=== PATIENT | female | born 1935 | race African-American/Black ===

== ENCOUNTER 2020-03-20 11:53 | Inpatient (IN) | payer MEDICARE, BC, MEDICAID ==
[~2020-03-20] VITALS: Ht 160 cm; Wt 62.8 kg
[2020-03-20] MEDS ORDERED: AZITHROMYCIN IV 500 MG in IV DEXTROSE 5% 250 ML IV ONE (13:30)
[2020-03-20] MEDS ORDERED: CEFEPIME HCL 2 G in IV DEXTROSE 5% 100 ML IV ONE (13:30)
[2020-03-20] MEDS ORDERED: CEFEPIME HCL 1 G VIAL ONE (13:57)
[2020-03-20] MEDS ORDERED: AZITHROMYCIN 500MG/ D5W 250ML IVPB **ER PYXIS ONLY IV ONE (13:57)
--- NOTE | 2020-03-20 14:10 | NUR ---
I and another RN attempted to place a HL, but unable to DR Delgado made aware. Midline ordered by .
[2020-03-20 14:21] LABS: BASOPHILS % (AUTO) 0.2 % (0.0-2.0); HEMATOCRIT 35.1 % (31.2-41.9); HEMOGLOBIN 11.4 g/dL (10.9-14.3); LYMPHOCYTES # (AUTO) 0.9 K/uL (20.0-40.0); LYMPHOCYTES % (AUTO) 26.6 % (20.5-51.5); MEAN CORPUSCULAR HEMOGLOBIN 30.1 uug (24.7-32.8); MEAN CORPUSCULAR HGB CONC 33 g/dL (32.3-35.6); MEAN CORPUSCULAR VOLUME 92.6 fL (75.5-95.3); MONOCYTES # (AUTO) 0.5 K/uL (2.0-10.0); MONOCYTES % (AUTO) 13.1 % (0.0-11.0); NEUTROPHILS # (AUTO) 2.1 K/uL (1.8-8.9); NEUTROPHILS % (AUTO) 60.1 % (38.5-71.5); PLATELET COUNT (AUTO) 322 K/uL (179-408); RED BLOOD CELL COUNT(AUTO) 3.79 MIL/uL (3.63-4.92); WHITE BLOOD COUNT (AUTO) 3.5 K/uL (3.8-11.8)
--- NOTE | 2020-03-20 14:30 | NUR ---
Midline Rn at the bedside for [place] placement.
[2020-03-20 14:33] LABS: ETHANOL < 3 MG/DL (0-0)
[2020-03-20 14:46] LABS: CARBON DIOXIDE 27 mmol/L (21-32); CHLORIDE 106 mmol/L (98-107); CREATININE 1.2 mg/dL (0.6-1.3); GLUCOSE 83 mg/dL (74-106); POTASSIUM 4.3 mmol/L (3.5-5.1); UREA NITROGEN, BLOOD 20 mg/dL (7-18)
[2020-03-20 14:56] LABS: *BLOOD, URINE TRACE (NEGATIVE); *COLOR,URINE YELLOW (YELLOW); *KETONES,URINE 2+ (NEGATIVE); LEUKOCYTE ESTERASE ,URINE 1+ (NEGATIVE); NITRITE, URINE NEGATIVE (NEGATIVE); UGLUCOSE NEGATIVE (NEGATIVE)
[2020-03-20 14:57] LABS: *AMPHETAMINE, URINE NEGATIVE (NEGATIVE); *BILIRUBIN,URIN 1+ (NEGATIVE); *CANNABINOID, URINE NEGATIVE (NEGATIVE); *COCCAINE, URINE NEGATIVE (NEGATIVE); *OPIATE, URINE POSITIVE (NEGATIVE); *PHENCYCLIDINE SCREEN,URINE NEGATIVE (NEGATIVE)
[2020-03-20 14:57] LABS: MAGNESIUM 2.3 mg/dL (1.8-2.4); PHOSPHOROUS 2.9 mg/dL (2.5-4.9)
[2020-03-20 15:05] LABS: ALANINE AMINOTRANSFERASE 13 U/L (14-59); ALKALINE PHOSPHATASE 66 U/L (50-136); ASPARTATE AMINOTRANSFERASE 31 U/L (15-37); BILIRUBIN,DIRECT 0.4 mg/dL (0.0-0.2); BILIRUBIN,TOTAL 0.8 mg/dL (0.2-1.0)
[2020-03-20 15:10] LABS: ACETAMINOPHEN < 2.0 ug/mL (10-30)
[2020-03-20 15:18] LABS: *CLARITY,URINE CLOUDY (CLEAR); BACTERIA,URINE FEW /HPF (NONE SEEN); SQUAMOUS EPITHELIAL CELL,UR MANY /HPF (NONE SEEN); WBC,URINE TNTC /HPF (0-3)
[2020-03-20 15:40] LABS: THYROID STIMULATING HORMONE 0.609 mIU/mL (0.358-3.740)
[2020-03-20] MEDS ORDERED: FUROSEMIDE 40 MG/4 ML VIAL IV ONE (16:00)
[2020-03-20] MEDS ORDERED: DEXAMETHASONE SOD PHOSPHATE 4 MG INJ IV ONE (16:00)
[2020-03-20 16:02] LABS: THYROID STIMULATING HORMONE 0.609 mIU/mL (0.358-3.740)
[2020-03-20] MEDS ORDERED: FUROSEMIDE 40 MG/4 ML VIAL ONE (16:04)
[2020-03-20] MEDS ORDERED: DEXAMETHASONE SOD PHOSPHATE 10 MG INJ ONE (16:04)
[2020-03-20] MEDS ORDERED: CARISOPRODOL (16:31)
[2020-03-20] MEDS ORDERED: GABAPENTIN (16:31)
[2020-03-20] MEDS ORDERED: DILTIAZEM (16:31)
[2020-03-20] MEDS ORDERED: METOPROLOL (16:31)
--- NOTE | 2020-03-20 16:31 | NUR ---
LIST OF MEDICATIONS OBTAINED FROM PARAMEDICS - DOSE AND FREQUENCY NOT SPECIFIED.
--- NOTE | 2020-03-20 19:12 | NUR ---
Marianne amos in ED - 03/20/20 at 1913 by CAROLEE Patient A/Ox2, confused pending admit orders from Amanuel
--- NOTE | 2020-03-20 19:12 | NUR ---
Received report handoff from HAILEY Dave for continuity of care.
--- NOTE | 2020-03-20 19:13 | NUR ---
Patient UTI/COVID A/Ox2 confused, no pending meds, pending inpatient orders from [facility]
[2020-03-20] MEDS ORDERED: ONDANSETRON 4 MG/2 ML VIAL IV PRN (22:15)
[2020-03-20] MEDS ORDERED: MAGNESIUM HYDROXIDE 30 ML LIQUID UDC PO PRN (22:15)
[2020-03-20] MEDS ORDERED: ACETAMINOPHEN 325 MG TABLET ONE (22:33)
[2020-03-20] MEDS ORDERED: ENOXAPARIN SODIUM 40 MG/0.4 ML DISP.SYRIN SQ ONE (22:33)
[2020-03-20] MEDS ORDERED: CEFTRIAXONE /D5W 50ML IVPB **ER PYXIS IV ONE (22:33)
[2020-03-20] MEDS: ENOXAPARIN SODIUM 30 MG/0.3 ML DISP.SYRIN SUBCUT SCH (22:42)
[2020-03-20] MEDS: CEFTRIAXONE 1 G in IV DEXTROSE 5% 50 ML IV SCH (22:42)
[2020-03-20] MEDS: ACETAMINOPHEN 325 MG TABLET PO PRN (23:30)
--- NOTE | 2020-03-21 00:34 | NUR ---
Report given to HAILEY Dalton
--- NOTE | 2020-03-21 01:14 | NUR ---
Admitted patient to Tele unit from Er via [facility] accompanied by staff nurse with D/x of ani Coleman.Patient awake alert x1. Confused.On room air .Saturating at 97%.Midline on right upper arm patent and intact. Body assessment done with no skin breakdown.SAfety measures in place.Call light with in reach .will continue to monitor.
[2020-03-21 01:26] VITALS: BP 155/95
[2020-03-21] MEDS: PANTOPRAZOLE SODIUM 40 MG TABLET.DR PO SCH (06:06)
[2020-03-21] MEDS: MORPHINE SULFATE 2 MG/1 ML DISP.SYRIN IV PRN (06:07)
[2020-03-21 06:36] VITALS: BP 147/100
[2020-03-21 07:10] LABS: BASOPHILS % (AUTO) 0.5 % (0.0-2.0); HEMATOCRIT 35.1 % (31.2-41.9); HEMOGLOBIN 11.7 g/dL (10.9-14.3); LYMPHOCYTES # (AUTO) 0.7 K/uL (20.0-40.0); LYMPHOCYTES % (AUTO) 25.4 % (20.5-51.5); MEAN CORPUSCULAR HEMOGLOBIN 30.7 uug (24.7-32.8); MEAN CORPUSCULAR HGB CONC 33 g/dL (32.3-35.6); MEAN CORPUSCULAR VOLUME 92.2 fL (75.5-95.3); MONOCYTES # (AUTO) 0.3 K/uL (2.0-10.0); NEUTROPHILS # (AUTO) 1.6 K/uL (1.8-8.9); NEUTROPHILS % (AUTO) 64.1 % (38.5-71.5); PLATELET COUNT (AUTO) 361 K/uL (179-408); WHITE BLOOD COUNT (AUTO) 2.6 K/uL (3.8-11.8)
[2020-03-21 07:38] LABS: ALANINE AMINOTRANSFERASE 16 U/L (14-59); ALKALINE PHOSPHATASE 66 U/L (50-136); ASPARTATE AMINOTRANSFERASE 31 U/L (15-37); BILIRUBIN,TOTAL 0.5 mg/dL (0.2-1.0); CARBON DIOXIDE 27 mmol/L (21-32); CHLORIDE 102 mmol/L (98-107); CHOLESTEROL 188 mg/dL (<200); CREATININE 1.5 mg/dL (0.6-1.3); FERRITIN 770 ng/mL (8-252); GLUCOSE 125 mg/dL (74-106); HDL CHOLESTEROL 43 mg/dL (40-60); MAGNESIUM 2.2 mg/dL (1.8-2.4); PHOSPHOROUS 3.5 mg/dL (2.5-4.9); POTASSIUM 3.9 mmol/L (3.5-5.1); TOTAL PROTEIN, SERUM 9.1 g/dL (6.4-8.2); TRIGLYCERIDES 148 MG/DL (30-150); UREA NITROGEN, BLOOD 30 mg/dL (7-18)
[2020-03-21] MEDS: DEXAMETHASONE SOD PHOSPHATE 4 MG INJ IV SCH (10:01)
[2020-03-21 11:47] VITALS: BP 152/92
[2020-03-21] MEDS: METOPROLOL TARTRATE 25 MG TABLET PO SCH ×2 (13:48→21:08)
[2020-03-21 15:37] VITALS: BP 145/94
--- NOTE | 2020-03-21 18:50 | NUR ---
Patient remains alert, oriented x2, not in any form of distress, afebrile, on room air. She denies any pain or discomfort. Assisted with her needs promptly. IV line in place and patent on the right AC. Call light and frequently used items placed within reach. Safety precaution observed. Kept clean and comfortable. Will continue to monitor and will endorse accordingly.
[2020-03-21] MEDS: IV 1/2NS 1000 ML 1,000 ML IV PRN (19:34)
[2020-03-21 20:30] VITALS: BP 135/91
[2020-03-21] MEDS: DOCUSATE SODIUM 100 MG CAPSULE PO SCH (21:08)
[2020-03-21] MEDS: ENOXAPARIN SODIUM 30 MG/0.3 ML DISP.SYRIN SUBCUT SCH (21:09)
[2020-03-21] MEDS: CEFTRIAXONE 1 G in IV DEXTROSE 5% 50 ML IV SCH (23:55)
[2020-03-22] VITALS: BP 155/94
--- NOTE | 2020-03-22 02:19 | NUR ---
Bedrest maintained. AAOx2-3 Confused and disoriented. VSS. Fall precautions maintained. Siderails up for safety. Compliant with meds. IVF's infusing well via right upper midline, patent and flushed without any difficulty. Patient on telemetry, patient Sinus Rhthym. All due meds given without any difficulty.
[2020-03-22 04:00] VITALS: BP 149/92
--- NOTE | 2020-03-22 05:38 | NUR ---
Patient hasnt void all night. Bladder scan done, noted <435 ml in the bladder. Dr Cordova aware, #16 FR Bojorquez catheter inserted per MD's order, obtained moderate amount of gladis urine noted. Will monitor I & O.
[2020-03-22 06:21] LABS: BASOPHILS % (AUTO) 0.4 % (0.0-2.0); HEMATOCRIT 34.8 % (31.2-41.9); HEMOGLOBIN 11.6 g/dL (10.9-14.3); LYMPHOCYTES % (AUTO) 10.9 % (20.5-51.5); MEAN CORPUSCULAR HEMOGLOBIN 30.3 uug (24.7-32.8); MEAN CORPUSCULAR HGB CONC 33 g/dL (32.3-35.6); MEAN CORPUSCULAR VOLUME 90.8 fL (75.5-95.3); MONOCYTES # (AUTO) 0.7 K/uL (2.0-10.0); MONOCYTES % (AUTO) 7.6 % (0.0-11.0); NEUTROPHILS # (AUTO) 7.2 K/uL (1.8-8.9); NEUTROPHILS % (AUTO) 81.1 % (38.5-71.5); PLATELET COUNT (AUTO) 459 K/uL (179-408); RED BLOOD CELL COUNT(AUTO) 3.83 MIL/uL (3.63-4.92); WHITE BLOOD COUNT (AUTO) 8.8 K/uL (3.8-11.8)
[2020-03-22 06:41] LABS: ALANINE AMINOTRANSFERASE 16 U/L (14-59); ALKALINE PHOSPHATASE 64 U/L (50-136); ASPARTATE AMINOTRANSFERASE 34 U/L (15-37); BILIRUBIN,TOTAL 0.5 mg/dL (0.2-1.0); CARBON DIOXIDE 27 mmol/L (21-32); CHLORIDE 103 mmol/L (98-107); CREATININE 1.6 mg/dL (0.6-1.3); GLUCOSE 117 mg/dL (74-106); MAGNESIUM 2.4 mg/dL (1.8-2.4); PHOSPHOROUS 2.8 mg/dL (2.5-4.9); POTASSIUM 4.1 mmol/L (3.5-5.1); TOTAL PROTEIN, SERUM 8.7 g/dL (6.4-8.2); UREA NITROGEN, BLOOD 40 mg/dL (7-18)
[2020-03-22] MEDS: DEXAMETHASONE SOD PHOSPHATE 4 MG INJ IV SCH (08:17)
[2020-03-22] MEDS: METOPROLOL TARTRATE 25 MG TABLET PO SCH ×2 (08:25→20:21)
[2020-03-22] MEDS: PANTOPRAZOLE SODIUM 40 MG TABLET.DR PO SCH (08:25)
[2020-03-22] MEDS: MORPHINE SULFATE 2 MG/1 ML DISP.SYRIN IV PRN ×2 (08:28→13:30)
[2020-03-22 12:33] VITALS: BP 131/93
[2020-03-22] MEDS: IV 1/2NS 1000 ML 1,000 ML IV PRN (14:22)
[2020-03-22 16:26] VITALS: BP 128/90
--- NOTE | 2020-03-22 19:00 | NUR ---
RECEIVED PT IN NO ACUTE DISTRESS. IV INTACT. CHANEY INTACT.PT ON ROOM AIR. SAFETY AND COMFORT PROVIDED. WILL CONTINUE TO MONITOR.
--- NOTE | 2020-03-22 19:40 | NUR ---
PT HAD EPISODES ON CONFUSION AND SCREAMING. DR ORTIZ ORDERED 0.5MG Q8HPRN FOR ANXIETY.
[2020-03-22] MEDS ORDERED: LORAZEPAM 2 MG/1 ML VIAL IV PRN (19:45)
[2020-03-22] MEDS: DOCUSATE SODIUM 100 MG CAPSULE PO SCH (20:20)
[2020-03-22] MEDS: ACETAMINOPHEN 325 MG TABLET PO PRN (20:21)
[2020-03-22] MEDS: ENOXAPARIN SODIUM 30 MG/0.3 ML DISP.SYRIN SUBCUT SCH (20:25)
[2020-03-22 20:26] VITALS: BP 129/83
[2020-03-22] MEDS: CEFTRIAXONE 1 G in IV DEXTROSE 5% 50 ML IV SCH (23:02)
[2020-03-23 04:05] VITALS: BP 139/70
--- NOTE | 2020-03-23 05:24 | NUR ---
PT SLEPT INTERMITTENTLY . PT IN NO ACUTE DISTRESS. IV INTACT. PT GIVEN TYLENOL 650MG PRN AT 2020 H FOR PAIN PER PT REQUESTED. PT SISTER CALLED AND WAS UPDATED REGARDING PT CONDITION, TOLD PT SISTER TO GET MORE INFORMATION FROM PATIENTS DAUGHTER WHO IS THE PERSON TO NOTIFY. CHANEY CATHETER INTACT AND DRAINING WELL. SAFETY AND COMFORT PROVIDED. WILL ENDORSE TO INCOMING FOR CONTINUITY OF CARE.
[2020-03-23] MEDS: IV 1/2NS 1000 ML 1,000 ML IV PRN ×2 (06:19→20:17)
[2020-03-23] MEDS: PANTOPRAZOLE SODIUM 40 MG TABLET.DR PO SCH (06:41)
[2020-03-23 07:12] LABS: CARBON DIOXIDE 26 mmol/L (21-32); CHLORIDE 103 mmol/L (98-107); CREATININE 1.4 mg/dL (0.6-1.3); GLUCOSE 90 mg/dL (74-106); MAGNESIUM 2.4 mg/dL (1.8-2.4); PHOSPHOROUS 2.7 mg/dL (2.5-4.9); POTASSIUM 3.8 mmol/L (3.5-5.1); UREA NITROGEN, BLOOD 35 mg/dL (7-18)
[2020-03-23 08:18] LABS: BASOPHILS % (AUTO) 0.2 % (0.0-2.0); HEMATOCRIT 33.6 % (31.2-41.9); HEMOGLOBIN 11.1 g/dL (10.9-14.3); LYMPHOCYTES % (AUTO) 12.6 % (20.5-51.5); MEAN CORPUSCULAR HEMOGLOBIN 30.7 uug (24.7-32.8); MEAN CORPUSCULAR HGB CONC 33 g/dL (32.3-35.6); MEAN CORPUSCULAR VOLUME 93.1 fL (75.5-95.3); MONOCYTES # (AUTO) 0.6 K/uL (2.0-10.0); NEUTROPHILS # (AUTO) 6.3 K/uL (1.8-8.9); NEUTROPHILS % (AUTO) 80.2 % (38.5-71.5); PLATELET COUNT (AUTO) 473 K/uL (179-408); RED BLOOD CELL COUNT(AUTO) 3.61 MIL/uL (3.63-4.92); WHITE BLOOD COUNT (AUTO) 7.9 K/uL (3.8-11.8)
[2020-03-23] MEDS: DEXAMETHASONE SOD PHOSPHATE 4 MG INJ IV SCH (09:08)
[2020-03-23] MEDS: METOPROLOL TARTRATE 25 MG TABLET PO SCH (09:08)
[2020-03-23 11:00] VITALS: BP 138/92
[2020-03-23 15:00] VITALS: BP 132/88
--- NOTE | 2020-03-23 19:54 | NUR ---
Patient in bed awake, AOx2 and confused. on RA with no SOB or distress at this time. JACEK 1/2 NS @ 100cc. Stable throughout shift. Safety precaution in place.
[2020-03-23 20:00] VITALS: BP_SYST 159
[2020-03-23 20:03] VITALS: BP 150/101
[2020-03-23] MEDS: ATORVASTATIN 10 MG TABLET PO SCH (21:00)
[2020-03-23] MEDS: ENOXAPARIN SODIUM 30 MG/0.3 ML DISP.SYRIN SUBCUT SCH (21:00)
[2020-03-23] MEDS: DOCUSATE SODIUM 100 MG CAPSULE PO SCH (21:00)
--- NOTE | 2020-03-23 21:00 | NUR ---
PT REFUSED TO TAKE MEDICATIONS, DIDNT WANT TO BE BOTHERED AT THIS TIME. ASYMPTOMATIC OF ANY HYPERTENSIVE CRISIS. CLOSELY MONITORED FOR ANY CONDITION CHANGES.
[2020-03-23] MEDS: CEFTRIAXONE 1 G in IV DEXTROSE 5% 50 ML IV SCH (23:00)
[2020-03-24 04:00] VITALS: BP 161/96
--- NOTE | 2020-03-24 04:00 | NUR ---
UNEVENTFUL NOC, NO ACUTE DISTRESS NOTED,COVID POSITIVE, SAFETY PREC MEASURES OBSERVED AND MAINTAINED.SLET FAIRLY WELL ,NO PRESENTED COMPLAINTS. CALL LITE W/I REACH. NEEDS ATTENDED TOO, IVF INFUSING WELL TORIGHT UPPER ARMMIDLINE.NO SSX OF INFILTRATION.STILL CONFUSED AND DISORIENTED. REORIENTATION TO SURROUNDINGS PROVIDED.CHANEY CATH INTACT AND DRAINING WELL TO YELLOW SERENA URINE.
[2020-03-24 09:25] VITALS: BP 148/94
[2020-03-24 09:43] LABS: BASOPHILS # (AUTO) 0.1 K/uL (0.0-8.0); BASOPHILS % (AUTO) 0.6 % (0.0-2.0); EOSINOPHILS % (AUTO) 0.1 % (0.0-7.0); HEMOGLOBIN 11.6 g/dL (10.9-14.3); LYMPHOCYTES # (AUTO) 0.7 K/uL (20.0-40.0); LYMPHOCYTES % (AUTO) 7.6 % (20.5-51.5); MEAN CORPUSCULAR HEMOGLOBIN 29.8 uug (24.7-32.8); MEAN CORPUSCULAR HGB CONC 32 g/dL (32.3-35.6); MEAN CORPUSCULAR VOLUME 92.9 fL (75.5-95.3); MONOCYTES # (AUTO) 0.9 K/uL (2.0-10.0); MONOCYTES % (AUTO) 9.4 % (0.0-11.0); NEUTROPHILS # (AUTO) 7.5 K/uL (1.8-8.9); NEUTROPHILS % (AUTO) 82.3 % (38.5-71.5); PLATELET COUNT (AUTO) 448 K/uL (179-408); RED BLOOD CELL COUNT(AUTO) 3.88 MIL/uL (3.63-4.92); WHITE BLOOD COUNT (AUTO) 9.2 K/uL (3.8-11.8)
[2020-03-24 09:50] LABS: POTASSIUM 3.7 mmol/L (3.5-5.1)
[2020-03-24] MEDS: DEXAMETHASONE SOD PHOSPHATE 4 MG INJ IV SCH (10:03)
[2020-03-24] MEDS: PANTOPRAZOLE SODIUM 40 MG TABLET.DR PO SCH (10:03)
[2020-03-24] MEDS: METOPROLOL TARTRATE 25 MG TABLET PO SCH ×2 (10:04→21:02)
[2020-03-24 12:26] VITALS: BP 144/96
[2020-03-24] MEDS: MORPHINE SULFATE 2 MG/1 ML DISP.SYRIN IV PRN (14:43)
[2020-03-24] MEDS: IV 1/2NS 1000 ML 1,000 ML IV PRN (14:44)
[2020-03-24] MEDS: AZITHROMYCIN IV 500 MG in IV DEXTROSE 5% 250 ML IV SCH (14:45)
[2020-03-24 15:36] VITALS: BP 147/93
[2020-03-24 20:00] VITALS: BP 141/88
[2020-03-24] MEDS: ATORVASTATIN 10 MG TABLET PO SCH (20:52)
[2020-03-24] MEDS: DOCUSATE SODIUM 100 MG CAPSULE PO SCH (20:53)
[2020-03-24] MEDS: ENOXAPARIN SODIUM 30 MG/0.3 ML DISP.SYRIN SUBCUT SCH (20:54)
[2020-03-24] MEDS: CEFTRIAXONE 1 G in IV DEXTROSE 5% 50 ML IV SCH (23:00)
[2020-03-25] MEDS: MORPHINE SULFATE 2 MG/1 ML DISP.SYRIN IV PRN (01:14)
[2020-03-25 04:00] VITALS: BP 146/94
[2020-03-25] MEDS: PANTOPRAZOLE SODIUM 40 MG TABLET.DR PO SCH (06:14)
--- NOTE | 2020-03-25 08:32 | NUR ---
Pt is in no acute distress. Discussed plan of care with pt re notify RN for any sob. Pt agreeable with plan of care. Pt denies any c/o pain. Call light is within reach.
[2020-03-25] MEDS: DEXAMETHASONE SOD PHOSPHATE 4 MG INJ IV SCH (08:48)
[2020-03-25] MEDS: METOPROLOL TARTRATE 25 MG TABLET PO SCH ×2 (08:48→20:10)
[2020-03-25 08:57] LABS: BILIRUBIN,DIRECT 0.1 mg/dL (0.0-0.2); BILIRUBIN,TOTAL 0.6 mg/dL (0.2-1.0); MAGNESIUM 2.1 mg/dL (1.8-2.4); POTASSIUM 3.8 mmol/L (3.5-5.1); TOTAL PROTEIN, SERUM 7.3 g/dL (6.4-8.2)
[2020-03-25] MEDS: IV 1/2NS 1000 ML 1,000 ML IV PRN (09:05)
[2020-03-25 09:37] LABS: BASOPHILS # (AUTO) 0.1 K/uL (0.0-8.0); BASOPHILS % (AUTO) 0.6 % (0.0-2.0); EOSINOPHILS % (AUTO) 0.2 % (0.0-7.0); HEMATOCRIT 22.2 % (31.2-41.9); LYMPHOCYTES # (AUTO) 1.6 K/uL (20.0-40.0); LYMPHOCYTES % (AUTO) 11.7 % (20.5-51.5); MEAN CORPUSCULAR HGB CONC 32 g/dL (32.3-35.6); MEAN CORPUSCULAR VOLUME 92.8 fL (75.5-95.3); MONOCYTES # (AUTO) 1.4 K/uL (2.0-10.0); MONOCYTES % (AUTO) 10.4 % (0.0-11.0); NEUTROPHILS # (AUTO) 10.3 K/uL (1.8-8.9); NEUTROPHILS % (AUTO) 77.1 % (38.5-71.5); PLATELET COUNT (AUTO) 472 K/uL (179-408); WHITE BLOOD COUNT (AUTO) 13.4 K/uL (3.8-11.8)
[2020-03-25 09:45] LABS: HEMOGLOBIN 7.2 g/dL (10.9-14.3); RED BLOOD CELL COUNT(AUTO) 2.39 MIL/uL (3.63-4.92)
--- NOTE | 2020-03-25 11:00 | NUR ---
h/h 7.2/22.2 SID Manzanares /Dr farhan escobedo to order 1 unit prbc.
[2020-03-25 11:49] VITALS: BP 129/84
[2020-03-25] MEDS: AZITHROMYCIN IV 500 MG in IV DEXTROSE 5% 250 ML IV SCH (13:14)
--- NOTE | 2020-03-25 14:30 | NUR ---
Dr wilson aware of low h/h. Wants a repeat of cbc for the h/h level. notified no s/s of bleeding noted and web weaver has not seen any bleeding from patient. Awaiting recheck cbc from lab.
[2020-03-25 15:34] VITALS: BP 155/90
[2020-03-25] MEDS ORDERED: NEUTRA PHOS PACKET PO ONE (16:00)
[2020-03-25 17:17] LABS: IRON, SERUM 34 ug/dL (50-175)
--- NOTE | 2020-03-25 18:30 | NUR ---
cbc not done per refuse laborer no core rescuer available to draw blood. Pt remains asymptomatic and no signs of bleeding. IV infusing as ordered. IV on right arm midline intact. no s/s of infiltrate. Call light is within reach pt tolerated R/a throughout shift.
[2020-03-25] MEDS: DOCUSATE SODIUM 100 MG CAPSULE PO SCH (19:53)
[2020-03-25 20:00] VITALS: BP 138/78
--- NOTE | 2020-03-25 20:00 | NUR ---
Spoke with Lionel from lab [place] buyer still not available and rochelle laborer tree tapping attempted to draw blood but unsuccessful. Pt denies any c/o pain. Pt comfortable no s/s of bleeding noted.
[2020-03-25] MEDS: ATORVASTATIN 10 MG TABLET PO SCH (20:10)
[2020-03-25] MEDS ORDERED: ENOXAPARIN SODIUM 40 MG/0.4 ML DISP.SYRIN SQ SCH (21:00)
[2020-03-25 23:14] LABS: BASOPHILS # (AUTO) 0.1 K/uL (0.0-8.0); BASOPHILS % (AUTO) 0.9 % (0.0-2.0); EOSINOPHILS % (AUTO) 0.1 % (0.0-7.0); HEMOGLOBIN 10.6 g/dL (10.9-14.3); LYMPHOCYTES # (AUTO) 0.9 K/uL (20.0-40.0); LYMPHOCYTES % (AUTO) 9.7 % (20.5-51.5); MEAN CORPUSCULAR HEMOGLOBIN 30.2 uug (24.7-32.8); MEAN CORPUSCULAR HGB CONC 33 g/dL (32.3-35.6); MONOCYTES # (AUTO) 0.7 K/uL (2.0-10.0); MONOCYTES % (AUTO) 7.6 % (0.0-11.0); NEUTROPHILS # (AUTO) 7.4 K/uL (1.8-8.9); NEUTROPHILS % (AUTO) 81.7 % (38.5-71.5); PLATELET COUNT (AUTO) 425 K/uL (179-408); RED BLOOD CELL COUNT(AUTO) 3.51 MIL/uL (3.63-4.92)
[2020-03-25] MEDS: CEFTRIAXONE 1 G in IV DEXTROSE 5% 50 ML IV SCH (23:19)
--- NOTE | 2020-03-26 | NUR ---
hg/ht 10.6 /32.0 rechecked level -Per Angelica Cordova ok to hold PRBC secondary to lab error from earlier blood draw. Pt sleeping comfortably.
[2020-03-26 04:00] VITALS: BP 133/80
[2020-03-26] MEDS: IV 1/2NS 1000 ML 1,000 ML IV PRN (04:53)
[2020-03-26] MEDS: PANTOPRAZOLE SODIUM 40 MG TABLET.DR PO SCH (07:17)
[2020-03-26 08:23] LABS: MAGNESIUM 2.1 mg/dL (1.8-2.4); PHOSPHOROUS 2.3 mg/dL (2.5-4.9); POTASSIUM 3.9 mmol/L (3.5-5.1)
[2020-03-26 09:05] LABS: BASOPHILS % (AUTO) 0.3 % (0.0-2.0); EOSINOPHILS % (AUTO) 0.5 % (0.0-7.0); HEMATOCRIT 32.8 % (31.2-41.9); HEMOGLOBIN 10.7 g/dL (10.9-14.3); LYMPHOCYTES # (AUTO) 1.1 K/uL (20.0-40.0); LYMPHOCYTES % (AUTO) 12.3 % (20.5-51.5); MEAN CORPUSCULAR HGB CONC 33 g/dL (32.3-35.6); MEAN CORPUSCULAR VOLUME 92.1 fL (75.5-95.3); MONOCYTES # (AUTO) 0.9 K/uL (2.0-10.0); MONOCYTES % (AUTO) 9.6 % (0.0-11.0); NEUTROPHILS # (AUTO) 6.9 K/uL (1.8-8.9); NEUTROPHILS % (AUTO) 77.3 % (38.5-71.5); PLATELET COUNT (AUTO) 430 K/uL (179-408); RED BLOOD CELL COUNT(AUTO) 3.56 MIL/uL (3.63-4.92); WHITE BLOOD COUNT (AUTO) 8.9 K/uL (3.8-11.8)
[2020-03-26] MEDS: DEXAMETHASONE SOD PHOSPHATE 4 MG INJ IV SCH (09:21)
[2020-03-26] MEDS: METOPROLOL TARTRATE 25 MG TABLET PO SCH (09:48)
[2020-03-26 11:25] VITALS: BP 143/91
[2020-03-26] MEDS ORDERED: ACET325T53 PO (13:15)
[2020-03-26] MEDS ORDERED: METO25TA6 PO (13:15)
[2020-03-26] MEDS ORDERED: DOCU100C36 PO (13:15)
[2020-03-26] MEDS ORDERED: GABA-532 PO (13:15)
[2020-03-26] MEDS ORDERED: MULT-594 PO (13:15)
[2020-03-26] MEDS ORDERED: PANT40TA2 PO (13:15)
[2020-03-26] MEDS ORDERED: ATOR10TA PO (13:15)
[2020-03-26 15:10] VITALS: BP 136/94
[2020-03-26] MEDS ORDERED: NEUTRA PHOS PACKET PO ONE (16:30)
--- NOTE | 2020-03-26 19:57 | NUR ---
Spoke with nurse Britt and gave report. PT will be transferring to [facility] via ambulance ([facility] PT is in bed, asleep and comfortable. No acute distress or shortness of breath noted. IV removed. No bleeding or swelling noted at site. Safety measure provided, call light within reach, bed low and lock.
[2020-03-27 13:06] LABS: CALCITRIOL VIT D,1,25 DIHYDROX 51.7 pg/mL (19.9-79.3)
== END 2020-03-26 20:50 | DRG 177 ==
LOC: ER 11:53 → TRANSITION 17:32 → TELE3 23:13 → MEDSURG3 03-22 22:51
PROVIDERS: ADMIT Internal Medicine; ATTEND Internal Medicine
PROC: 05HY33Z Insertion of Infusion Device into Upper Vein, Percutaneous Approach (ICD-10-PCS; principal; 2020-03-20)
DX: U07.1 COVID-19 (principal); J12.89 Other viral pneumonia; E43 Unspecified severe protein-calorie malnutrition; G92 Toxic encephalopathy; N17.0 Acute kidney failure with tubular necrosis; D68.69 Other thrombophilia; N39.0 Urinary tract infection, site not specified; D72.819 Decreased white blood cell count, unspecified; D64.9 Anemia, unspecified; E83.52 Hypercalcemia; E78.5 Hyperlipidemia, unspecified; F03.90 Unspecified dementia, unspecified severity, without behavioral disturbance, psychotic disturbance, mood disturbance, and anxiety; G89.29 Other chronic pain; I25.10 Atherosclerotic heart disease of native coronary artery without angina pectoris; Z86.73 Personal history of transient ischemic attack (TIA), and cerebral infarction without residual deficits; R53.1 Weakness; M51.36 Other intervertebral disc degeneration, lumbar region; M48.061 Spinal stenosis, lumbar region without neurogenic claudication; M19.90 Unspecified osteoarthritis, unspecified site; Z68.24 Body mass index [BMI] 24.0-24.9, adult; I12.9 Hypertensive chronic kidney disease with stage 1 through stage 4 chronic kidney disease, or unspecified chronic kidney disease; N18.9 Chronic kidney disease, unspecified; G93.89 Other specified disorders of brain; N28.1 Cyst of kidney, acquired
CPT/HCPCS: 36415; 51702; 70030-TC; 70450; 71045; 72131; 76770; 82652; 83550; 83605; 83615; 83735; 83970; 84100; 84443; 85025; 85730; 86140; 86900; 86901; 86920; 87040; 87086; 93005; A4663; C1758; G0378; G0480; J0456; J0692; J0696; J1100; J1650; J1940; J2060; J2270; J3490; J7060